=== PATIENT | female | born 1990 | race Caucasian/White ===

== ENCOUNTER 2017-09-28 20:59 | Emergency (ER) | payer SELFPAY ==
[2017-09-28 22:01] LABS: KETONE, URINE AUTO RFX NEGATIVE (NEGATIVE); NITRITE, URINE AUTO RFX NEGATIVE (NEGATIVE); RBC, URINE AUTO RFX 0 /HPF (0-3); SQUAM EPITHELIAL CELL UR AURFX 0 /HPF (0-6); WBC, URINE AUTO RFX 2 /HPF (0-3)
[2017-09-28 22:44] LABS: LEUKOCYTE ESTERASE UR AUTO RFX 2+ (NEGATIVE)
[2017-09-28] MEDS: PHENAZOPYRIDINE 100 MG TAB PO (23:04)
[2017-09-28] MEDS: BACTRIM 160MG/800MG DS TAB PO (23:04)
== END 2017-09-28 23:27 | disposition home or self-care (01) ==
LOC: M ED 20:59
DX: N30.90 Cystitis, unspecified without hematuria (principal)
CPT/HCPCS: 81001